=== PATIENT | male | born 1960 | race Caucasian/White ===

== ENCOUNTER → 2020-09-12 | Outpatient (CLI) | payer BC | LOC: HYPER 10:05 → RAD 10:06 | PROVIDERS: ATTEND Emergency Medicine | DX: L97.522 Non-pressure chronic ulcer of other part of left foot with fat layer exposed (principal); L84 Corns and callosities; G60.3 Idiopathic progressive neuropathy; E78.5 Hyperlipidemia, unspecified; I10 Essential (primary) hypertension; M10.9 Gout, unspecified; Z89.421 Acquired absence of other right toe(s) ==

== ENCOUNTER → 2020-09-13 | Outpatient (CLI) | payer BC, OTHER | LOC: MRI 08:10 | PROVIDERS: ATTEND Emergency Medicine | DX: L97.522 Non-pressure chronic ulcer of other part of left foot with fat layer exposed (principal); G60.3 Idiopathic progressive neuropathy; L84 Corns and callosities ==

== ENCOUNTER → 2020-09-28 | Outpatient (CLI) | payer BC, OTHER | LOC: HYPER 10:13 | PROVIDERS: ATTEND Emergency Medicine | DX: L97.522 Non-pressure chronic ulcer of other part of left foot with fat layer exposed (principal); G60.3 Idiopathic progressive neuropathy; L84 Corns and callosities; I10 Essential (primary) hypertension; E78.5 Hyperlipidemia, unspecified; M10.9 Gout, unspecified; Z89.421 Acquired absence of other right toe(s) ==

== ENCOUNTER → 2020-10-17 | Outpatient (CLI) | payer BC, OTHER | LOC: HYPER 10:49 | PROVIDERS: ATTEND Emergency Medicine | DX: L97.522 Non-pressure chronic ulcer of other part of left foot with fat layer exposed (principal); L84 Corns and callosities; G60.3 Idiopathic progressive neuropathy; I10 Essential (primary) hypertension; E78.5 Hyperlipidemia, unspecified; M10.9 Gout, unspecified; Z89.421 Acquired absence of other right toe(s) ==

== ENCOUNTER → 2020-11-08 | Outpatient (CLI) | payer BC, OTHER | LOC: HYPER 14:02 | PROVIDERS: ATTEND Emergency Medicine | DX: L97.522 Non-pressure chronic ulcer of other part of left foot with fat layer exposed (principal); S91.302A Unspecified open wound, left foot, initial encounter; S90.822A Blister (nonthermal), left foot, initial encounter; L84 Corns and callosities; G60.3 Idiopathic progressive neuropathy; I10 Essential (primary) hypertension; E78.5 Hyperlipidemia, unspecified; M10.9 Gout, unspecified; Z89.421 Acquired absence of other right toe(s); X58.XXXA Exposure to other specified factors, initial encounter; Y93.02 Activity, running; Y92.89 Other specified places as the place of occurrence of the external cause; Y99.8 Other external cause status ==

== ENCOUNTER → 2020-12-13 | Outpatient (CLI) | payer BC, OTHER | LOC: HYPER 14:49 | PROVIDERS: ATTEND Emergency Medicine | DX: L97.522 Non-pressure chronic ulcer of other part of left foot with fat layer exposed (principal); L84 Corns and callosities; G60.3 Idiopathic progressive neuropathy; I10 Essential (primary) hypertension; E78.5 Hyperlipidemia, unspecified; M10.9 Gout, unspecified; Z89.421 Acquired absence of other right toe(s) ==

== ENCOUNTER 2021-01-23 12:36 | Inpatient (IN) | payer BC, OTHER ==
[~2021-01-23] VITALS: Ht 182.9 cm; Wt 94.3 kg
--- NOTE | ~2021-01-23 | HC ---
[facility] [place] [address] CONSULTATION Name: MICAH WILKES Room #: 456-P ADM IN M.R.#: [id number] Admission: 01/24/21 Attend Phys: Bolivar Tai MD Discharge: Date of : 64 Report #: [id number] THIS REPORT FOR: cc: Matty Carrasquillo MD,Rojelio Guadarrama MD, MD ~ DATE OF SERVICE: 01/24/2021 WOUND CARE CONSULTATION PERSONAL PHYSICIAN: Matty Carrasquillo MD CHIEF COMPLAINT: Left plantar foot ulcer. HISTORY OF PRESENT ILLNESS: This is a 60-year-old white male with a history of severe peripheral neuropathy, which is idiopathic who I have been following in the wound clinic for chronic ulcer on the plantar aspect of his second metatarsal head. The patient was seen 3 weeks ago, and at that time, was offered admission for exposed bone and presumed osteomyelitis of the second metatarsal head. Due to the patient's social and work conflicts, he was unable to be admitted at that time and then presented back through the Emergency Department yesterday for admission of cellulitis of the left foot and surgical evaluation for possible amputation. The patient also has an ulceration on the plantar aspect of the left fifth metatarsal head, but has no obvious exposed bone. MRI shows extensive osteomyelitis of the second metatarsal head and subtle osteomyelitis of the fifth metatarsal head. The patient denies any other associated wounds at this time. PAST MEDICAL HISTORY: Significant for idiopathic peripheral neuropathy, multiple surgeries to bilateral feet with a TMA on the right foot secondary to chronic ulcer, hypertension. Please note the patient is not diabetic. CURRENT MEDICATIONS: Multiple including IV vancomycin. I reviewed the patient's medication list. DRUG ALLERGIES: None. SOCIAL HISTORY: The patient resides with his independently. They travel in a mobile home throughout various states depending on where the patient is working at that time. FAMILY HISTORY: Not pertinent to current medical condition. REVIEW OF SYSTEMS: CONSTITUTIONAL: The patient denies actual fevers or chills. [facility] [address] [place] [address] CONSULTATION Name: MICAH WILEKS Kye Room #: 456-P [facility] IN M.R.#: [id number] Admission: 01/24/21 Attend Phys: Bolivar Tai MD Discharge: Date of : 64 Report #: [id number] NEUROLOGIC: The patient denies weakness in arms or legs. Has chronic numbness of his lower extremities. EYES: No complaints. ENT: No complaints. CARDIAC: The patient denies chest pain, palpitations, or peripheral edema. RESPIRATORY: The patient denies shortness of breath, cough or wheezes. GASTROINTESTINAL: The patient denies nausea, vomiting, abdominal pain. GENITOURINARY: The patient denies urgency or frequency. MUSCULOSKELETAL: No complaints. SKIN: There is chronic ulceration on the plantar aspect of the left foot. PHYSICAL EXAMINATION: VITAL SIGNS: Temperature 36.3, pulse 72, respirations 16, BP 110/60. GENERAL: This is an alert and oriented x 3, pleasant white male who is in no obvious distress. HEENT: Normocephalic, atraumatic. Mucous membranes are dry. Pupils are round. Sclerae white. NECK: Supple, nontender, without JVD. LUNGS: Clear. HEART: Regular. ABDOMEN: Soft, nontender. EXTREMITIES: The patient moves all extremities without difficulty. Evaluation of left lower extremity reveals trace to 1+ edema with 2+ dorsalis pedis pulse. Plantar aspect of the foot shows a second metatarsal head to be exposed and moderate amount of serosanguineous drainage noted. There is an ulceration on the left plantar 5th metatarsal head, which is superficial with no exposed bone. The foot itself has increased erythema and warmth. NEUROLOGIC: Cranial nerves 2-12 grossly intact. Motor and sensory grossly intact except for patient's peripheral neuropathy. LABORATORY VALUES: White count 4.2, hemoglobin 13.2. Sed rate 20. BUN 16, creatinine 1.2, albumin 3.2. C-reactive protein 36.2. IMPRESSION: 1. Chronic ulceration, plantar aspect of the second metatarsal head with underlying osteomyelitis. 2. Chronic ulceration, left fifth metatarsal head with subtle changes of osteomyelitis. 3. Severe peripheral neuropathy. 4. Mild protein-calorie malnutrition with albumin 3.2. 5. Generalized debility. PLAN: At this time, Dr. Shields, who has done the patient's previous foot surgeries, has been consulted. The plan is for a transmetatarsal amputation. I spoke at length with the patient and his about this, and they are agreeable [address] [address] CONSULTATION Name: MICAH WILKES Room #: 456-P ADM IN M.R.#: [id number] Admission: 01/24/21 Attend Phys: Bolivar Tai MD Discharge: Date of : 64 Report #: [id number] to this procedure. Previous arterial studies have shown no arterial insufficiency or blockage. We will make sure we maximize the patient's oral protein supplementation for healing. We will continue all other current medications. Infectious Disease is following the patient as well and has him on IV antibiotics. By: 0937 [id number] Rojelio Alcantar MD /nt
--- NOTE | ~2021-01-23 | O ---
[facility] [place] [address] OPERATIVE REPORT Name: MICAH WILKES Room #: 456-P [facility] M.R.#: [id number] Admission: 01/23/21 Attend Phys: Bolivar Tai MD Discharge: Date of : 64 Report #: [id number] THIS REPORT FOR: cc: Matty Carrasquillo MD,Cristhian Chacon MD, DPM ~ DATE OF SERVICE: 01/24/2021 PREOPERATIVE DIAGNOSIS: Left foot ulcer, chronic with deformity. POSTOPERATIVE DIAGNOSIS: Left foot ulcer, chronic with deformity. PROCEDURE: Left transmetatarsal amputation. ANESTHESIA: General with a local block consisting of 15 mL of 0.5% Marcaine. TOURNIQUET: 250, Calf. DESCRIPTION OF PROCEDURE: The patient was transported left the operating room and placed on the operating table in the supine position. General anesthesia was administered. A local block was given. The left lower extremity was prepped and draped in the usual sterile manner. Attention was directed to the left foot where a fishmouth incision was made. Incision was carried down to bone. Dissecting free the metatarsals at the neck plantarly and dorsally and using sagittal saw to cut the metatarsal at the neck and removing the toes essentially distally. This exposed the metatarsals clear. I was able to dissect free the metatarsal about half-way down. This created a nice dorsal and plantar flap. It should be also noted, there was no signs of infection at any of the metatarsal areas at all even at the head that was resected. There was excellent blood flow and excellent quality tissue. I did take some deep tissue culture anyway for aerobic and fungal. I dissected metatarsals free little further and resected approximately 1.5 cm with a metatarsals off taking more off on the medial aspect of the first [facility] [address] [place] [address] OPERATIVE REPORT Name: MICAH WILKES [id number] Admission: 01/23/21 Attend Phys: Bolivar Tai MD Discharge: Date of : 64 Report #: [id number] metatarsal and the lateral aspect of the fifth metatarsal and maintaining a normal parabola of the foot. I took off all tendons and capsular tissues and plantar plate giving a nice healthy dorsal and plantar flap, washed it out thoroughly. I used some thrombin for bleeding and tied off any vessels likely bleeding as well ____. Wound was then closed using a combination of 2-0 nylon and #5 Ethilon. Excellent closure was noted with no tension. It was dressed with Xeroform, fluffs, Margarita, and outer Kerlix wrap with a posterior and sugar tong splint. The patient tolerated the procedure well and left the operating room in stable condition with vascular status intact and vital signs stable. By: [id number] Cristhian Cohn, SHAUN /arlette
[2021-01-23 12:37] VITALS: BP 143/66
[2021-01-23] MEDS ORDERED: ZESTRIL10 MG PO (12:40)
[2021-01-23] MEDS ORDERED: LIPITOR10 MG PO (12:40)
[2021-01-23] MEDS ORDERED: FOLIC ACID1 MG PO (12:41)
[2021-01-23] MEDS ORDERED: NEURONTIN 300M300 M2 PO (12:41)
[2021-01-23] MEDS ORDERED: VITAMIN B122500 MCG PO (12:42)
[2021-01-23] MEDS ORDERED: EFFER-K 10 MEQ10 ME1 PO (12:42)
[2021-01-23 14:10] LABS: HEMATOCRIT 40.9 % (42.0-52.0); HEMOGLOBIN 13.2 gm/dL (14.0-18.0); MCH 28.3 pg (26.0-34.0); MCHC 32.3 g/dL (28.0-37.0); MCV 87.4 fL (80.0-100.0); RBC 4.69 mil/uL (4.50-6.00); RDW 14.2 % (10.5-14.5); WBC 4.2 thou/uL (4.0-11.0)
[2021-01-23 14:20] LABS: CALCIUM 8.5 mg/dL (8.5-10.1); CREATININE 1.2 mg/dL (0.7-1.3); POTASSIUM 3.8 mmol/L (3.5-5.1)
[2021-01-23 14:26] LABS: ALBUMIN 3.2 g/dL (3.4-5.0); TOTAL BILIRUBIN 0.4 mg/dL (0.2-1.0); TOTAL PROTEIN 7.1 g/dL (6.4-8.2)
[2021-01-23 14:36] VITALS: BP 143/66
[2021-01-23 15:16] LABS: URINE BILIRUBIN NEGATIVE (Negative); URINE BLOOD NEGATIVE (Negative); URINE CLARITY CLEAR; URINE COLOR YELLOW; URINE GLUCOSE-RANDOM* NEGATIVE (Negative); URINE KETONES NEGATIVE (Negative); URINE LEUKOCYTES-REFLEX NEGATIVE (Negative); URINE NITRITE-REFLEX NEGATIVE (Negative); URINE PROTEIN (DIPSTICK) NEGATIVE (Negative); URINE UROBILINOGEN 0.2 E.U./dl (0.2-1.0)
[2021-01-23 15:32] LABS: FOLIC ACID 34.5 ng/mL (8.6-58.9)
[2021-01-23 16:08] VITALS: BP 128/66
[2021-01-23 19:35] VITALS: BP 124/69
--- NOTE | 2021-01-23 20:03 | NUR ---
Admit from ER due to neuropathic ulcer at L foot. Transferred to bed safely. A+Ox4. On room air. Vital signs stable. Admission assessment, history and education done. Admission packet given; forms signed. On MS, not on telemetry; no complains and signs of chest pain, crushing sensation and heaviness. On heart healthy diet- tolerating well; no nausea, no vomiting and no abdominal pain noted; pt informed and aware re: NPO post midnight. With SL at R FA- on IV antibiotics. L foot wound photo taken, dressing in place; possible surgery tomorrow- a/w time; manager adult aware. Up ad lucy. Pt complained re: gabapentin dose and frequency- Dr Tai aware and orders obtained. Covid swab done, specimen sent to lab; a/w results. To continue monitoring patient.
--- NOTE | 2021-01-24 03:38 | NUR ---
PT IS A/O X4 AND IS UP AD KAITLIN TO BR. ROOM AIR. VOIDS PER TOILET. NO BM THIS SHIFT. SHOWER COMPLETED INDEPENDENTLY WITH SET UP ASSISTANCE. NPO SINCE MIDNIGHT AWAITING PROCEDURE IN THE AM. DRSG TO LEFT FOOT IS C/D/I. CALL LIGHT IS WITHIN REACH. CALLS OUT APPROPRIATELY.
[2021-01-24 08:00] VITALS: BP 111/67
--- NOTE | 2021-01-24 14:20 | NUR ---
PT ADMITTED RELATED TO NEUROPATHIC LEFT FOOT ULCER. CM REVIEWED CHART AND SPOKE WITH CARE TEAM. CM MET WITH PT AND SPOUSE AT BEDSIDE THIS DAY. PT APPEARED TO BE A&O X4. CM ROLE INTRODUCED. PT INDICATED HE AND HIS LIVE IN AN RV BUT THAT THEY ARE STAYING IN AN APARTMENT IN [facility] UNTIL February. PT INDICATED HE SEES DR. MANN AT OP WOUND CLINIC AND THAT HE IS ESTABLISHED WITH WOUND CARE SUPPLY DELIVERY THROUGH THEM AND A COMPANY CALLED [facility]. PT INDICATED HE HAS HAD PASTOR IN THE PAST IN [place] AND HAD HOME IV INFUSION BUT CAN'T RECALL PROVIDER. PT IS TO HAVE TOE AMPUTATION THIS DAY. PT INDICATED HE PLANS TO RETURN TO THE APARTMENT IN [place] ONCE MEDICALLY STABLE. CM TO FOLLOW INDICATED WITH DC PLANNING.
--- NOTE | 2021-01-24 15:49 | NUR ---
PATIENT HAD SURGERY DONE - AMPUTATION OF LEFT TOES THIS AFTERNOON. POST SURGERY IV ABX GIVEN. VANC TROUGH DUE 01/25 AT 0230. PATIENT PLACED ON TELE POST PROCEUDRE. GIVEN PERCOCET FOR PAIN MANAGEMENT. TOLERATING CLEAR LIQUID DIET WELL, ADVANCING TOLERATED. AT BEDSIDE. STABLE VITAL SIGNS. PATIENT VOICES NO NEEDS OR CONCERNS.
[2021-01-24 17:28] VITALS: BP 113/66
[2021-01-24 19:56] VITALS: BP 117/2
--- NOTE | 2021-01-24 22:38 | HC ---
[facility] [place] [address] CONSULTATION Name: MICAH WILKES Room #: 456-P [facility] M.R.#: [id number] Admission: 01/23/21 Attend Phys: Bolivar Tai MD Discharge: Date of : 64 Report #: [id number] THIS REPORT FOR: cc: Matty Carrasquillo MD, Kevin R. MD Geha, Daniel J. MD ~ DATE OF SERVICE: 01/23/2021 INFECTIOUS DISEASE CONSULTATION REASON FOR CONSULTATION: I was asked to evaluate concerning left foot neuropathic ulcers and secondary infection. HISTORY OF PRESENT ILLNESS: The patient was a 60-year-old with underlying peripheral neuropathy. From the patient's report, this is idiopathic. Over the last several months, he has been dealing with plantar foot wound on the left over the second metatarsal head as well as a wound over the plantar lateral aspect of his fifth metatarsal head. He has been followed by wound care service. He has had outpatient cultures, unclear of the results. He has been on oral antibiotic therapy up until this past week. He denies any fever, chills or sweats. 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 He has had previous transmetatarsal amputation on the right foot. He was hospitalized due to nonhealing wound to the plantar aspect of his foot and progressive wound to the heel. He has had previous MRI scan, which showed neuropathic ulcer and early bony changes of the metatarsal heads. He has also had arterial studies, which showed no evidence of significant vascular disease. REVIEW OF SYSTEMS: A 14-point review of system was negative other than what has been described above. The patient has been residing in [place] for his job and commuting to [place] for his wound care. ALLERGIES: None known. MEDICATIONS: As noted on his MAR, now on vancomycin. PAST MEDICAL HISTORY: Multiple surgeries to his right foot, ending in a transmetatarsal amputation. Several left foot surgeries, hypertension, peripheral neuropathy. FAMILY HISTORY: No report of neuropathy. Does have sisters with diabetes. SOCIAL HISTORY: Nonsmoker, no significant alcohol intake. . PHYSICAL EXAMINATION: VITAL SIGNS: He is afebrile and hemodynamically stable. [facility] [address] [place] [address] CONSULTATION Name: MICAH WILKES Room #: 456-P [facility] M..#: [id number] Admission: 01/23/21 Attend Phys: Bolivar Tai MD Discharge: Date of : 64 Report #: [id number] GENERAL: He is alert and cooperative, in no distress. SKIN: Without rash. Does have several small ulcerations to his pretibial skin with mild venous stasis changes anteriorly. EXTREMITIES: His right foot transmetatarsal flap was healthy with no skin breakdown. The left foot with a full thickness ulcer, plantar aspect of his forefoot over the second metatarsal head. There was also a full-thickness wound over the plantar lateral aspect of his fifth metatarsal. No palpable adenopathy. EYES: Without scleral icterus. MOUTH: Without mucositis. NECK: Supple. LUNGS: Clear to auscultation. HEART: Regular, without murmur, gallop or rub. ABDOMEN: Soft and nontender with no hepatosplenomegaly or mass. BACK: Nontender with no CVA tenderness. GENITORECTAL: Not performed. NEUROLOGIC: Cranial nerves intact. Mood was without anxiety or depression. Strength in his upper and lower extremities within normal limits and symmetric. Sensation to fine touch was diminished in both feet, left greater than right, which extended to his distal lower leg. Pulses were palpable, femoral, popliteal, dorsalis pedis and posterior tibial. Good capillary refill in his toes. LABORATORY STUDIES: Reviewed. MICROBIOLOGY: Reviewed. MRI scan of the left foot reviewed. IMPRESSION: 1. A 60-year-old with left foot neuropathic ulcers and associated metatarsal head osteomyelitis involving the metatarsal 2 and 5. 2. Peripheral neuropathy. 3. Hypertension. RECOMMENDATION: We will continue empiric IV antibiotic therapy, pending intraoperative cultures. The patient has been started on vancomycin and we will continue same pending tissue cultures. Anticipate broadening his antibiotics after this has been completed. We will then determine duration of therapy following the intraoperative findings and cultures. Neurology evaluation of his peripheral neuropathy. <ELECTRONICALLY SIGNED> By: Cameron Cardona MD 01/24/21 [id number] Cameron Cardona MD /nt
--- NOTE | 2021-01-25 04:46 | NUR ---
Pt. rested quietly at short intervals during the night when checked on during frequent rounds. Po pain meds given for pain (see emar) with some relief noted. Dressing to right foot is dry and intact.
[2021-01-25 05:14] LABS: POTASSIUM 4.3 mmol/L (3.5-5.1)
[2021-01-25 05:15] LABS: HEMATOCRIT 36.3 % (42.0-52.0); HEMOGLOBIN 11.7 gm/dL (14.0-18.0)
[2021-01-25 07:50] VITALS: BP 110/60
--- NOTE | 2021-01-25 09:52 | NUR ---
Nutrition: Pt admitted with neuropathic left foot ulcer, seen due to wound indication. S/P left transmetatarsal amputation on 01/24. Good oral intake 100% of meals and understands protein importance. Drinks high protein supplement at home, will add ensure max daily. Stable weights. Low nutrition risk.
--- NOTE | 2021-01-25 14:55 | NUR ---
CARE TEAM INDICATED THAT PT MAY BE MEDICALLY STABLE TO DC OVER THE WEEKEND. CM SPOKE WITH WC TEAM AND THEY INDICATED THAT PT WILL LIEKLY BE SAFE TO DC HOME TO SELF CARE. PT ESTABLISHED WITH OP WOUND CLINIC HERE AT [facility] WITH APPOINTMENT THURSDAY. PT'S SPOUSE WILL BE ABLE TO ASSIST WITH GRESSING CHANGES. THEY HAVE HOME DELIVERY OF WC SUPPLIES SET UP THROUGH WC CLINIC AND [facility]. SHOULD ANY DC NEEDS ARISE CM TO FOLLOW TO ASSIST.
[2021-01-25 15:20] VITALS: BP 113/56
--- NOTE | 2021-01-25 17:58 | NUR ---
ASSUMED CARE OF PATIENT AT 0700. ASSESSMENT CHARTED MEDICATIONS ADMINISTERED PER EMAR. VSS. PATIENT IS A&OX4 AND ABLE TO MAKE NEEDS KNOWN. tHIS IS POST OP DAY1 FOR PATIENT. VOICING CONSTANT PAIN AT 3 AND GETTING UP TO 7. PATIENT GIVEN PRN PAIN PILLS WELL GABAPENTIN AND VOICING RELIEF. DR. MANN SAW PATIENT THIS DAY AND INSTRUCTED NURSING TO HAVE SURGEON LOOK AT WOUND AND DO THE 1ST DRESSING. RECCOMENDATIONS AFTERWARD WOULD BE XEROFOAM ABD AND KERLIX. DRESSING REMAINS INTACT W SOME SANGUINOUS DRAINAGE NOTED. PATIENT TOLERATING DIET WELL. FAMILY AT BEDSIDE. WORKING W PT AND OT/ SEE NOTES ON TRANSFER. ABX INFUSED ON L HAND W NO ISSUES. SPUSE AT BEDSIDE. VOICES NO OTHER NEEDS. WILL ENDORSE TO KATHERINE. RN
[2021-01-25 19:57] VITALS: BP 109/61
[2021-01-26 04:37] LABS: HEMATOCRIT 32.9 % (42.0-52.0); HEMOGLOBIN 10.8 gm/dL (14.0-18.0); MCH 28.7 pg (26.0-34.0); MCHC 32.7 g/dL (28.0-37.0); MCV 87.7 fL (80.0-100.0); RBC 3.76 mil/uL (4.50-6.00); WBC 6.2 thou/uL (4.0-11.0)
[2021-01-26 04:50] LABS: CALCIUM 7.8 mg/dL (8.5-10.1); CREATININE 1.1 mg/dL (0.7-1.3); MAGNESIUM 2.1 mg/dL (1.8-2.4)
--- NOTE | 2021-01-26 05:51 | NUR ---
Pt. rested quietly at intervals during the night when checked on during frequent rounds. Po pain med given for c/o pain to bilateral feet (see emar) with some relief noted. Dressing to left foot is dry and intact. Pt. voiding without difficulty. Pt. getting prepared for discharge home.
[2021-01-26 07:15] VITALS: BP 111/64
--- NOTE | 2021-01-26 10:22 | NUR ---
Received awake on bed. Due medications given as prescribed, able to swallow meds w/o difficulty. On room air. Vital signs stable. On MS, not on telemetry; no complains and signs of chest pain, crushing sensation and heaviness. Assisted in ADLs. On heart healthy diet- tolerating well; no nausea, no vomiting and no abdominal pain noted. Continent of bowel and bladder, able to go to the toilet independently; pt aware re: wt bearing status. With SL at L hand- on IV antibiotics. No complains of pain made during assessment. Visited by today, update given. Pt very keen to go home today- a/w physician's rounds. With POD dressing at L leg, C/D/I.
[2021-01-26 15:29] VITALS: BP 97/50
[2021-01-26 19:31] VITALS: BP 111/55
[2021-01-27 07:25] VITALS: BP 117/61
--- NOTE | 2021-01-27 08:00 | NUR ---
PT LYING IN BED. OXY PROVIDNG PAIN RELIEF. POSSIBLE DISCHAARGE HOME 01/27. RESTING COMFORTABLY. NO NEEDS VOICED. CALL LIGHT WITHIN REACH. FREQUENT OBSERVATION.
[2021-01-27] MEDS ORDERED: LINEZOLID600 MG PO (12:02)
[2021-01-27] MEDS ORDERED: CIPROFLOXACIN750 MG PO (12:03)
[2021-01-27] MEDS ORDERED: PERCOCET PO (12:03)
[2021-01-27 12:28] VITALS: BP 117/61
--- NOTE | 2021-01-27 12:38 | NUR ---
ASSUMED PT CARE THIS AM. PT VSS, A&OX4. PT TOOK MEDS WELL THIS AM. COMPLAINS OF NO PAIN. FLUIDS ENCOURAGED. USING A URINAL WHEN NEEDED. FALL PRECAUTIONS IN PLACE, MAKES NEEDS KNOWN. PT DISCHARGED TO HOME AT 1240. REPORTS UNDERSTANDING OF DISCHARGE TEACHING.
--- NOTE | 2021-01-28 17:06 | PATH ---
[facility] [address] [place] [address] PATHOLOGY RPT PROCEDURE Name: MICAH WILKES Room #: 456-P [facility] IN M.R.#: [id number] Admission: 01/23/21 Date of : 64 Discharge: 01/27/21 Report #: [id number] Path Case #: [id number] [facility] Accession Number: [id number] . 01 Material submitted: . foot - TRANSMETATARSAL AMPUTATION(RAY). Modifiers: left . 01 Clinical history: . INFECTED LEFT FOOT . 02 Diagnosis: Foot, left, transmetatarsal amputation: - Skin and subcutaneous tissue showing ulceration with marked acute inflammation extending into underlying bone. - Acute osteomyelitis. - Margin of bone (second toe) showing reactive/reparative changes along with remodeling and chronic osteomyelitis. (IUV:pit 01/28/2021) QTP 01/28/2021 1451 Local . 02 Electronically signed: . Taina Roman MD, Pathologist NPI- [id number] . 01 Gross description: . The specimen is received in formalin, labeled "Micah Wilkes, left transmetatarsal amputation". Received is a left forefoot amputation, with attached metatarsals on toes 1 through 4, measuring 10.0 x 9.1 x 3.7 cm in greatest dimensions. All five toes are present. The bone margins of toes 1 through 4 are blunt in appearance, consistent with transection, and appear grossly unremarkable. The bone margin of toe 5 is slightly jagged in appearance. On the plantar aspect of the specimen, overlying toe 2, there is a poorly circumscribed, irregular in contour and light cruz lesion, which grossly abuts the skin margin, measuring 2.2 x 1.5 cm. The disarticulated aspect of the metatarsal present on this toe and displays a maki-cruz appearance and the cartilage is pulling away from the underlying bone. The bone and soft tissue margins of toe 2 is inked black. The specimen is submitted representatively as follows: . A1 full-thickness longitudinal cross-section through metatarsal of toe 2, following decalcification A2 longitudinal cross-section of bone on toe 2 underlying lesion, following decalcification A3 retail sales representative section of lesion on plantar aspect of toe 2 overlying bone section submitted in cassette A2. . Gross photographs are taken. [address] [address] PATHOLOGY RPT PROCEDURE Name: MICAH WILKES Room #: 456-P [facility] IN M.R.#: [id number] Admission: 01/23/21 Date of : 64 Discharge: 01/27/21 Report #: [id number] Path Case #: [id number] (CAA; 01/25/2021) QAC/QAC 01/25/2021 1043 Local . 02 Pathologist provided ICD-10: L97.529, M86.172 . 02 CPT . 763604, 810563 Specimen Comment: A courtesy copy of this report has been sent to [phone] Specimen Comment: Report sent to , / Performed at: [address] [facility] [address], [place] [id number] MD Keith Chowdary MD Phone: [phone] Performed at: [address] [facility] [address] [id number] MD Taina Roman MD Phone: [phone]
== END 2021-01-27 12:18 | disposition home or self-care (01) | DRG 580 ==
LOC: ER 12:36 → 4W 14:35 → EROBS 14:35 → 4W 16:00
PROVIDERS: Nurse Practitioner; Nurse Practitioner Family; Podiatrist Foot & Ankle Surgery; ADMIT Internal Medicine; ATTEND Internal Medicine
DX: L97.529 Non-pressure chronic ulcer of other part of left foot with unspecified severity (principal); E44.1 Mild protein-calorie malnutrition; M86.8X7 Other osteomyelitis, ankle and foot; I10 Essential (primary) hypertension; E78.5 Hyperlipidemia, unspecified; G62.9 Polyneuropathy, unspecified; S91.302A Unspecified open wound, left foot, initial encounter; X58.XXXA Exposure to other specified factors, initial encounter; R53.81 Other malaise; Z20.822 Contact with and (suspected) exposure to COVID-19; Y93.89 Activity, other specified; Y92.89 Other specified places as the place of occurrence of the external cause; Y99.8 Other external cause status; Z68.28 Body mass index [BMI] 28.0-28.9, adult; Z79.899 Other long term (current) drug therapy
CPT/HCPCS: 10040; 50010; 50101; 50386; 50951; 56524; 56525; 56527; 57091; 57178; 62110; 62900; 70005

== ENCOUNTER → 2021-01-29 | Outpatient (CLI) | payer BC, OTHER ==
[~2021-01-29] MED LIST: CIPROFLOXACIN750 MG PO; EFFER-K 10 MEQ10 ME1 PO; FOLIC ACID1 MG PO; LINEZOLID600 MG PO; LIPITOR10 MG PO; NEURONTIN 300M300 M2 PO; PERCOCET PO; VITAMIN B122500 MCG PO; ZESTRIL10 MG PO
== END ==
LOC: HYPER 09:39
PROVIDERS: ATTEND Emergency Medicine
DX: L97.522 Non-pressure chronic ulcer of other part of left foot with fat layer exposed (principal); L84 Corns and callosities; L03.032 Cellulitis of left toe; E78.5 Hyperlipidemia, unspecified; G60.3 Idiopathic progressive neuropathy; I10 Essential (primary) hypertension; M10.9 Gout, unspecified; Z89.421 Acquired absence of other right toe(s)

== ENCOUNTER → 2021-02-01 | Outpatient (CLI) | payer BC, OTHER | LOC: HYPER 07:56 | PROVIDERS: ATTEND Emergency Medicine | DX: T87.89 Other complications of amputation stump (principal); L97.522 Non-pressure chronic ulcer of other part of left foot with fat layer exposed; L03.032 Cellulitis of left toe; L84 Corns and callosities; I10 Essential (primary) hypertension; G60.3 Idiopathic progressive neuropathy; E78.5 Hyperlipidemia, unspecified; M10.9 Gout, unspecified; Z79.899 Other long term (current) drug therapy; Z89.421 Acquired absence of other right toe(s); Y83.5 Amputation of limb(s) as the cause of abnormal reaction of the patient, or of later complication, without mention of misadventure at the time of the procedure ==

== ENCOUNTER → 2021-02-04 | Outpatient (CLI) | payer BC, OTHER | LOC: HYPER 08:53 | PROVIDERS: ATTEND Emergency Medicine Emergency Medical Services | DX: T87.89 Other complications of amputation stump (principal); L97.522 Non-pressure chronic ulcer of other part of left foot with fat layer exposed; L03.032 Cellulitis of left toe; L84 Corns and callosities; I10 Essential (primary) hypertension; G60.3 Idiopathic progressive neuropathy; E78.5 Hyperlipidemia, unspecified; M10.9 Gout, unspecified; Z79.899 Other long term (current) drug therapy; Z89.421 Acquired absence of other right toe(s); Y83.5 Amputation of limb(s) as the cause of abnormal reaction of the patient, or of later complication, without mention of misadventure at the time of the procedure ==

== ENCOUNTER → 2021-02-11 | Outpatient (CLI) | payer BC, OTHER | LOC: HYPER 11:08 | PROVIDERS: ATTEND Emergency Medicine Emergency Medical Services | DX: T87.89 Other complications of amputation stump (principal); L97.522 Non-pressure chronic ulcer of other part of left foot with fat layer exposed; L03.032 Cellulitis of left toe; L84 Corns and callosities; I10 Essential (primary) hypertension; G60.3 Idiopathic progressive neuropathy; E78.5 Hyperlipidemia, unspecified; M10.9 Gout, unspecified; Z79.899 Other long term (current) drug therapy; Z89.421 Acquired absence of other right toe(s); Y83.5 Amputation of limb(s) as the cause of abnormal reaction of the patient, or of later complication, without mention of misadventure at the time of the procedure ==

== ENCOUNTER → 2021-02-18 | Outpatient (CLI) | payer BC, OTHER | LOC: HYPER 10:53 | PROVIDERS: ATTEND Emergency Medicine Emergency Medical Services | DX: T87.89 Other complications of amputation stump (principal); L03.032 Cellulitis of left toe; L84 Corns and callosities; I10 Essential (primary) hypertension; G60.3 Idiopathic progressive neuropathy; E78.5 Hyperlipidemia, unspecified; M10.9 Gout, unspecified; Z89.421 Acquired absence of other right toe(s); Y83.5 Amputation of limb(s) as the cause of abnormal reaction of the patient, or of later complication, without mention of misadventure at the time of the procedure ==

== ENCOUNTER → 2021-02-25 | Outpatient (CLI) | payer BC, OTHER | LOC: HYPER 10:45 | PROVIDERS: ATTEND Emergency Medicine | DX: T87.89 Other complications of amputation stump (principal); L03.032 Cellulitis of left toe; L84 Corns and callosities; I10 Essential (primary) hypertension; G60.3 Idiopathic progressive neuropathy; E78.5 Hyperlipidemia, unspecified; M10.9 Gout, unspecified; Z89.421 Acquired absence of other right toe(s); Y83.5 Amputation of limb(s) as the cause of abnormal reaction of the patient, or of later complication, without mention of misadventure at the time of the procedure ==

== ENCOUNTER → 2021-03-04 | Outpatient (CLI) | payer BC, OTHER | LOC: HYPER 11:25 | PROVIDERS: ATTEND Emergency Medicine | DX: T87.89 Other complications of amputation stump (principal); L84 Corns and callosities; I10 Essential (primary) hypertension; G60.3 Idiopathic progressive neuropathy; E78.5 Hyperlipidemia, unspecified; M10.9 Gout, unspecified; Z89.421 Acquired absence of other right toe(s); Y83.5 Amputation of limb(s) as the cause of abnormal reaction of the patient, or of later complication, without mention of misadventure at the time of the procedure ==

== ENCOUNTER → 2021-03-18 | Outpatient (CLI) | payer BC, OTHER | LOC: HYPER 13:07 | PROVIDERS: ATTEND Emergency Medicine | DX: T87.89 Other complications of amputation stump (principal); L84 Corns and callosities; I10 Essential (primary) hypertension; G60.3 Idiopathic progressive neuropathy; E78.5 Hyperlipidemia, unspecified; M10.9 Gout, unspecified; Z89.421 Acquired absence of other right toe(s); Y83.5 Amputation of limb(s) as the cause of abnormal reaction of the patient, or of later complication, without mention of misadventure at the time of the procedure ==

== ENCOUNTER → 2021-04-04 | Outpatient (CLI) | payer BC, OTHER | LOC: HYPER 08:22 | PROVIDERS: ATTEND Emergency Medicine | DX: T87.89 Other complications of amputation stump (principal); L84 Corns and callosities; I10 Essential (primary) hypertension; G60.3 Idiopathic progressive neuropathy; E78.5 Hyperlipidemia, unspecified; M10.9 Gout, unspecified; Z89.421 Acquired absence of other right toe(s); Y83.5 Amputation of limb(s) as the cause of abnormal reaction of the patient, or of later complication, without mention of misadventure at the time of the procedure ==